=== PATIENT | female | born 1990 | race African-American/Black ===

== ENCOUNTER 2024-09-15 06:51 | Emergency (ER) | payer BC, SELFPAY ==
[2024-09-15 06:53] VITALS: BP 139/95; PULSE 98; RESP 18; TEMP 36.8; O2SAT 100
--- NOTE | 2024-09-15 07:06 | PC.NURSE ---
Asked pt if she could provide a urine sample. She stated she just went to the bathroom but would give one as soon as she could
[2024-09-15 07:10] LABS: Basophils Percent Auto 0.6 % (0.2-1.2); Eosinophils Absolute Auto 0.1 K/mm3 (0-0.3); Eosinophils Percent Auto 1.9 % (0-4.4); Hematocrit 37.1 % (37.0-47.0); Immature Granulocyte Absolute 0.01 K/mm3 (0.00-0.031); Immature Granulocyte Percent A 0.2 % (0-0.5); Lymphocytes Absolute Auto 1.72 K/mm3 (0.9-3.2); Lymphocytes Percent Auto 36.7 % (18.3-44.2); Mean Corpuscular HGB Conc 32.3 g/dl (32-36); Mean Corpuscular Hemoglobin 26.5 pg (26-34); Mean Corpuscular Volume 82.1 fl (80-100); Mean Platelet Volume 10.5 fl (7.4-10.4); Monocytes Absolute Auto 0.3 K/mm3 (0.1-0.6); Monocytes Percent Auto 7.2 % (2.6-8.5); Neutrophils Absolute Auto 2.5 K/mm3 (1.3-6.7); Neutrophils Percent Auto 53.4 % (45.5-73.1); Platelet Count Result 355 k/mm3 (150-375); Red Blood Count 4.52 M/mm3 (4.2-5.4); White Blood Count 4.7 K/mm3 (4.5-10.0)
[2024-09-15] MEDS: SODIUM CHLORIDE 0.9% IV 2,000 ML 999 ML IV CONT (07:32)
[2024-09-15] MEDS: FAMOTIDINE 20 MG/2 ML VIAL IV PUSH (07:32)
--- NOTE | 2024-09-15 07:32 | ED_ITS ---
HPI - General Adult General Chief complaint: Nausea/Vomiting/Diarrhea Stated complaint: Diarrhea Time Seen by Provider: 09/15/24 06:56 History of Present Illness HPI narrative: this is a 34-year-old female presenting ED with complaint diarrhea. Patient says for the last 3 days she has been falls burps is rumbling in her stomach and multiple episodes of nonbloody diarrhea. This has caused her to have decreased oral intake. She denies fevers chills URI symptoms chest pain difficulty breathing abdominal pain or urinary symptoms. She has been taking Josselyn-Alto sharri yue with no improvement. Patient started Mounjaro 2 weeks ago. Related Data Allergies Allergy/AdvReac Type Severity Reaction Status Date / Time hydrocodone Allergy Unknown rash Verified 05/30/19 14:37 Exam Narrative: APPEARANCE: No apparent distress. well appearing Head: atraumatic. EYES: EOMI, NOSE: Atraumatic NECK: Trachea midline RESPIRATORY: No increased rate of breathing clear to auscultation CARDIOVASCULAR: RRR, No peripheral edema ABDOMINAL: Non-distended, soft nontender no, guarding/rebound no CVA tenderness MUSCULOSKELETAl: No obvious deformities NEURO: Alert. Moving 4/4 extremities SKIN:: Warm, dry. Normal color PSYCHIATRIC: Normal affect Course Vital Signs Vital signs: Vital Signs Temperature 98.3 F 09/15/24 06:53 Pulse Rate 98 09/15/24 06:53 Respiratory Rate 18 09/15/24 06:53 Blood Pressure 139/95 H 09/15/24 06:53 Pulse Oximetry 100 09/15/24 06:53 Oxygen Delivery Room Air 09/15/24 06:53 Temperature 98.3 F 09/15/24 06:53 Pulse Rate 96 09/15/24 08:30 Respiratory Rate 16 09/15/24 08:30 Blood Pressure 152/86 H 09/15/24 08:30 Pulse Oximetry 100 09/15/24 08:30 Oxygen Delivery Room Air 09/15/24 06:53 Medical Decision Making MDM Narrative Medical decision making narrative: -Course: 34-year-old female presenting with belching/diarrhea. Given fluid resuscitation and symptomatic treatment. Patient was incidentally found to be in early . Current presentation not related to her and no co ncern for ectopic. Patient will be discharged follow-up with primary care physician and OBGYN. -DDX includes but is not limited to: Food poisoning, Gastroenteritis,dyspepsia, mounjaro side effect -Co-morbidities complicating care: Diabetes -Social determinants of health: denies drugs or alcohol -Independent interpretation of studies: -Interventions: 2 L normal saline, Pepcid Maalox, lomotil -Shared decision making / Disposition: discharge -RX: Maalox, Vital Signs Vital Signs: Vital Signs Temperature 98.3 F 09/15/24 06:53 Pulse Rate 98 09/15/24 06:53 Respiratory Rate 18 09/15/24 06:53 Blood Pressure 139/95 H 09/15/24 06:53 Pulse Oximetry 100 09/15/24 06:53 Oxygen Delivery Room Air 09/15/24 06:53 Temperature 98.3 F 09/15/24 06:53 Pulse Rate 96 09/15/24 08:30 Respiratory Rate 16 09/15/24 08:30 Blood Pressure 152/86 H 09/15/24 08:30 Pulse Oximetry 100 09/15/24 08:30 Oxygen Delivery Room Air 09/15/24 06:53 Lab Data 09/15/24 07:02 09/15/24 07:02 Labs: Lab Results 09/15/24 09/15/24 09/15/24 Range/Units 07:02 07:02 07:29 WBC 4.7 (4.5-10.0) K/mm3 RBC 4.52 (4.2-5.4) M/mm3 Hgb 12.0 (12.0-15.0) g/dL Hct 37.1 (37.0-47.0) % MCV 82.1 (80-100) fl MCH 26.5 (26-34) pg MCHC 32.3 (32-36) g/dl RDW 14.0 (11.5-14.5) % Plt Count 355 (150-375) k/mm3 MPV 10.5 H (7.4-10.4) fl Immature Gran % (Auto) 0.2 (0-0.5) % Neut % (Auto) 53.4 (45.5-73.1) % Lymph % (Auto) 36.7 (18.3-44.2) % Hand % (Auto) 7.2 (2.6-8.5) % Eos % (Auto) 1.9 (0-4.4) % Baso % (Auto) 0.6 (0.2-1.2) % Lymph # (Auto) 1.72 (0.9-3.2) K/mm3 Hand # (Auto) 0.3 (0.1-0.6) K/mm3 Eos # (Auto) 0.1 (0-0.3) K/mm3 Baso # (Auto) 0.0 (0.0-0.1) K/mm3 Abs Immat Gran (auto) 0.01 (0.00-0.031) K/mm3 Absolute Neuts (auto) 2.5 (1.3-6.7) K/mm3 Absolute Nucleated RBC 0.000 (0.0-0.012) K/mm3 Nucleated RBC % 0.0 (0.0-0.2) % Sodium 137 (137-145) mmol/L Potassium 4.0 (3.4-5.0) mmol/L Chloride 104 (98-107) mmol/L Carbon Dioxide 22 (22-30) mmol/L Anion Gap 11 (4-12) mmol/L BUN 13 (7-17) mg/dL Creatinine 0.50 L (0.7-1.0) mg/dL Estim Creat Clear Calc 138 ml/min Estimated GFR > 60 (59 - ) Glucose 257 H (65-110) mg/dL Calcium 9.3 (8.4-10.2) mg/dL Total Bilirubin 0.5 (0.2-1.3) mg/dL AST 28 (14-36) U/L ALT 13 (6-35) U/L Alkaline Phosphatase 84 (38-126) U/L Total Protein 9.0 H (6.3-8.2) g/dL Albumin 4.7 (3.5-5.1) g/dL Lipase 58 (23-300) U/L Beta HCG, Quant 194.82 Cancelled mIU/ML Urine Color (Yellow) Urine Appearance (Clear) Urine pH (5.0-9.0) Ur Specific [place] (1.001-1.035) Urine Protein (Negative) mg/dL Urine Glucose (UA) (Negative) mg/dL Urine Ketones (Negative) mg/dL Ur Blood (Man) (Negative) Urine Nitrate (Negative) Urine Bilirubin (Negative) Urine Urobilinogen (<2.0) mg/dL Leukocyte Esterase Rfl (Negative) RICARDO/UL POC Urine HCG, Qual (Negative) Influenza A (RT-PCR) Pending Influenza B (RT-PCR) Pending RSV (RT-PCR) Pending SARS-CoV-2 RNA (RT-PCR) Pending 09/15/24 09/15/24 Range/Units 07:48 07:55 WBC (4.5-10.0) K/mm3 RBC (4.2-5.4) M/mm3 Hgb (12.0-15.0) g/dL Hct (37.0-47.0) % MCV (80-100) fl MCH (26-34) pg MCHC (32-36) g/dl RDW (11.5-14.5) % Plt Count (150-375) k/mm3 MPV (7.4-10.4) fl Immature Gran % (Auto) (0-0.5) % Neut % (Auto) (45.5-73.1) % Lymph % (Auto) (18.3-44.2) % Hand % (Auto) (2.6-8.5) % Eos % (Auto) (0-4.4) % Baso % (Auto) (0.2-1.2) % Lymph # (Auto) (0.9-3.2) K/mm3 Hand # (Auto) (0.1-0.6) K/mm3 Eos # (Auto) (0-0.3) K/mm3 Baso # (Auto) (0.0-0.1) K/mm3 Abs Immat Gran (auto) (0.00-0.031) K/mm3 Absolute Neuts (auto) (1.3-6.7) K/mm3 Absolute Nucleated RBC (0.0-0.012) K/mm3 Nucleated RBC % (0.0-0.2) % Sodium (137-145) mmol/L Potassium (3.4-5.0) mmol/L Chloride (98-107) mmol/L Carbon Dioxide (22-30) mmol/L Anion Gap (4-12) mmol/L BUN (7-17) mg/dL Creatinine (0.7-1.0) mg/dL Estim Creat Clear Calc ml/min Estimated GFR (59 - ) Glucose (65-110) mg/dL Calcium (8.4-10.2) mg/dL Total Bilirubin (0.2-1.3) mg/dL AST (14-36) U/L ALT (6-35) U/L Alkaline Phosphatase (38-126) U/L Total Protein (6.3-8.2) g/dL Albumin (3.5-5.1) g/dL Lipase (23-300) U/L Beta HCG, Quant mIU/ML Urine Color Yellow (Yellow) Urine Appearance Clear (Clear) Urine pH 5.5 (5.0-9.0) Ur Specific [place] 1.044 H (1.001-1.035) Urine Protein Negative (Negative) mg/dL Urine Glucose (UA) 3+ H (Negative) mg/dL Urine Ketones 2+ H (Negative) mg/dL Ur Blood (Man) Negative (Negative) Urine Nitrate Negative (Negative) Urine Bilirubin Negative (Negative) Urine Urobilinogen 0.2 (<2.0) mg/dL Leukocyte Esterase Rfl Negative (Negative) RICARDO/UL POC Urine HCG, Qual Positive (Negative) Influenza A (RT-PCR) Influenza B (RT-PCR) RSV (RT-PCR) SARS-CoV-2 RNA (RT-PCR) Discharge Plan Discharge Clinical Impression: Dyspepsia Patient Disposition: Home, Self-Care Condition: Stable Instructions: Antibiotic Form, Gastroenteritis (ED) Additional Instructions: Please take pepto bismo as needed for symptoms. Please follow-up primary care physician to 7 days as needed. Return to the ED if you develop fevers severe abdominal pain or intractable nausea and vomiting. You were also found to be in . Developed vaginal bleeding or lower pelvic pain please return to the ED evaluation. Otherwise please follow-up [employer] further management. Prescriptions: New alum-mag hydroxide-simeth [Maalox Advanced] 200-200-20 mg/5 mL suspension 10 ml PO QID PRN (Reason: dyspepsia) Qty: 500 0RF Rx Instructions: administer between meals and at bedtime diphenoxylate-atropine [Lomotil] 2.5-0.025 mg tablet 1 tablet PO TID PRN (Reason: diarrhea) Qty: 30 0RF Follow-up/Referrals: UNKNOWN,DOCTOR [Primary Care Provider] - Stand Alone Forms: Work/School Release IP
[2024-09-15] MEDS: DIPHENOXYLATE/ATROPINE (*CRX) 2.5 MG TABLET 1 TABLET PO (07:33)
[2024-09-15] MEDS: MAG HYDROX/AL HYDROX/SIMETH 30 ML UDC PO (07:33)
[2024-09-15 07:57] LABS: BEDSIDEPREGUCG Positive (Negative)
[2024-09-15 08:03] LABS: Add Urine Microscopic? NO; Appearance Urine Clear (Clear); Bilirubin Urine Negative (Negative); Blood Urine Negative (Negative); Color Urine Yellow (Yellow); Glucose Urine UA 3+ mg/dL (Negative); Ketones Urine 2+ mg/dL (Negative); Leukocyte Esterase Ur Negative LEU/UL (Negative); Nitrate Urine Negative (Negative); Protein Urine Negative (Negative); Specific Grav Ur 1.044 (1.001-1.035); Urobilinogen Urine 0.2 mg/dL (<2.0); pH Urine 5.5 (5.0-9.0)
[2024-09-15 08:30] VITALS: BP 152/86; PULSE 96; RESP 16; O2SAT 100
[2024-09-15 08:35] LABS: Alanine Aminotransferase 13 U/L (6-35); Albumin Level 4.7 g/dL (3.5-5.1); Alkaline Phosphatase 84 U/L (38-126); Anion Gap 11 mmol/L (4-12); Aspartate Amino Transferase 28 U/L (14-36); Bilirubin,Total 0.5 mg/dL (0.2-1.3); Blood Urea Nitrogen 13 mg/dL (7-17); Calcium 9.3 mg/dL (8.4-10.2); Carbon Dioxide 22 mmol/L (22-30); Chloride 104 mmol/L (98-107); Estimated CRCL calculation 138 ml/min; Estimated Glomerular Filt Rate > 60; Glucose 257 mg/dL (65-110); Lipase 58 U/L (23-300); Sodium 137 mmol/L (137-145)
[2024-09-15 08:49] LABS: Beta HCG Quantitative 194.82 mIU/ML
[2024-09-15 10:39] LABS: Influenza A QL RT-PCR Negative (Negative); Influenza B QL RT-PCR Negative (Negative); RSV RNA, RT-PCR Negative (Negative); SARS-CoV-2 RNA PCR Negative (Negative)
== END 2024-09-15 10:29 | disposition home or self-care (01) ==
PROVIDERS: Emergency Provider Emergency Medicine
DX: R10.13 Epigastric pain (principal); Z20.822 Contact with and (suspected) exposure to COVID-19
CPT/HCPCS: 36415; 80053; 81003; 81025; 83690; 84702; 85025; 87637; 96361; 96374; 99284; A9270; J7030